=== PATIENT | female | born 1940 | race Caucasian/White ===

== ENCOUNTER → 2019-01-02 | Outpatient (CLI) | payer MEDICARE ==
[~2019-01-02] VITALS: Ht 69 cm; Wt 105.0 kg
[~2019-01-02] MED LIST: ASP325T PO; CARV6.252 PO; CATHETER FLUSH 10 ML SYR IV PRN; HCT25T PO; LOSA100T7 PO; REGADENOSON 0.4 MG/5 ML SYR (LEXISCAN) IV ONE; ROSU20TA14 PO
[2019-01-02 10:08] VITALS: BP 140/57
--- NOTE | 2019-01-02 14:50 | STRESS TEST ---
DATE OF SERVICE: 01/02/2019 LEXISCAN MYOVIEW STRESS TEST REFERRING PHYSICIAN: Kirstin Sampson MD. Baseline heart rate is 60, baseline blood pressure 187/82. Baseline EKG is sinus rhythm with right bundle branch block. SUMMARY: The patient was injected with 10.36 mCi of technetium-99 Myoview and the resting images were obtained. Then, the patient received 0.4 mg of Lexiscan followed by 29.5 mCi of technetium-99 Myoview. Throughout the test, there were no EKG changes. The resting and stress images were reviewed and compared in the short axis, horizontal long axis, and vertical long axis views. Review of the images showed good radiotracer uptake with no significant ischemia or infarction. SSS is 1, SDS 1, TID value 1.07. On the gated images, the left ventricle appeared to be normal size with normal contractility. Calculated ejection fraction is 58%. CONCLUSION: 1. The patient tolerated Lexiscan well. 2. Baseline right bundle branch block persisted throughout test. 3. No ischemia or infarction on SPECT images. 4. Normal left ventricular size with normal contractility. Calculated ejection fraction is 58%. Job ID: [id number] DocumentID: [id number] Dictated Date: 01/02/2019 12:32:02 Groundhand Date: 01/02/2019 14:50:04 Dictated By: TAMIKA AMEZCUA MD
== END ==
LOC: CARD 08:23
PROVIDERS: ATTEND Internal Medicine Cardiovascular Disease
DX: I08.1 Rheumatic disorders of both mitral and tricuspid valves (principal); I45.10 Unspecified right bundle-branch block; I11.9 Hypertensive heart disease without heart failure; I65.29 Occlusion and stenosis of unspecified carotid artery; I25.10 Atherosclerotic heart disease of native coronary artery without angina pectoris; E78.2 Mixed hyperlipidemia
CPT/HCPCS: 78452; 93017; 93306

== ENCOUNTER → 2020-03-13 | Outpatient (CLI) | payer OTHER, MEDICARE ==
[~2020-03-13] MED LIST changes: -CATHETER FLUSH 10 ML SYR IV PRN; -REGADENOSON 0.4 MG/5 ML SYR (LEXISCAN) IV ONE
== END ==
LOC: GIR 11:34
PROVIDERS: ATTEND Family Medicine
DX: Z20.828 Contact with and (suspected) exposure to other viral communicable diseases (principal)
CPT/HCPCS: 87635

== ENCOUNTER → 2021-12-24 | Outpatient (CLI) | payer MEDICARE | LOC: CARD 13:00 | PROVIDERS: ATTEND Physician Assistant | DX: I34.0 Nonrheumatic mitral (valve) insufficiency (principal); I10 Essential (primary) hypertension | CPT/HCPCS: 93306 ==

== ENCOUNTER → 2022-01-07 | Outpatient (CLI) | payer MEDICARE ==
[~2022-01-07] MED LIST changes: +CATHETER FLUSH 10 ML SYR IVP PRN; +REGADENOSON 0.4 MG/5 ML SYR (LEXISCAN) IV ONE
[2022-01-07 08:57] VITALS: BP 140/66
--- NOTE | 2022-01-07 10:55 | Cardiology Stress Test Report ---
Stress Test Report Date of Procedure/Referring: Date of Procedure: Jan 07, 2022 PCP Cecilia Dias MD Admitting Physician Admitting Physician: Attending Physician: Muriel Franco Indications: HTN Baseline Heart Rate: 66 Baseline Blood Pressure: Blood Pressure Systolic: 140 Blood Pressure Diastolic: 66 Baseline Vitals Vital Signs Date Time Temp Pulse Resp B/P (MAP) Pulse Ox O2 Delivery O2 Flow Rate FiO2 01/07/22 08:57 66 140/66 (90) Baseline EKG: Baseline EKG: NSR Summary After explaining the procedure to the patient, she signed a consent and then brought to the stress nuclear laboratory. Patient received 0.4 mg Lexiscan for stress test, ECG, heart rate and blood pressure were monitored continuously. Resting and stress dose of radio tracer were injected, imaging was acquired and reviewed in short axis, horizontal long axis and vertical long axis views. TID: 1.19 SSS: 12 SDS: 9 EF: 40 1. Patient tolerated Lexiscan well 2. Baseline right bundle branch block persisted during test 3. Reversible ischemia involving the inferior wall, inferior apex and inferolateral wall 4. Diffuse left ventricular hypokinesia more pronounced at the inferior wall, ejection fraction 40% Copy Copies To 1: CECILIA DIAS MD, BASHAR J MD Jan 07, 2022 10:55
== END ==
LOC: CARD 07:24
PROVIDERS: ATTEND Physician Assistant
DX: I25.10 Atherosclerotic heart disease of native coronary artery without angina pectoris (principal); I10 Essential (primary) hypertension
CPT/HCPCS: 78452; 93017; A9502

== ENCOUNTER 2022-01-14 09:00 | Day surgery (SDC) | payer MEDICARE ==
[~2022-01-14] VITALS: Ht 149.8 cm; Wt 66.7 kg
[2022-01-14 07:31] VITALS: BP 141/64
[2022-01-14 07:44] LABS: HEMATOCRIT 40 % (35-52); MEAN CORPUSCULAR HEMOGLOBIN 30 pg (25-34); MEAN CORPUSCULAR HGB CONC 33 g/dL (32-36); MEAN CORPUSCULAR VOLUME 91 fL (80-99); MEAN PLATELET VOLUME 9.8 fL (9.0-12.2); PLATELET COUNT 328 10^3/uL (130-400); WHITE BLOOD COUNT 8.2 10^3/uL (4.3-11.0)
[2022-01-14 08:03] LABS: ALBUMIN 4.1 GM/DL (3.2-4.5); BILIRUBIN,TOTAL 0.6 MG/DL (0.1-1.0); CREATININE SERUM 0.83 MG/DL (0.60-1.30); POTASSIUM 3.6 MMOL/L (3.6-5.0); TOTAL PROTEIN 7.2 GM/DL (6.4-8.2)
--- NOTE | 2022-01-14 08:05 | Diagnostic Imaging Report ---
History: Abnormal stress test, shortness of breath, coronary artery disease COMPARISON: None TECHNIQUE: Frontal view the chest FINDINGS: There is moderate cardiomegaly. Sternotomy wires are noted. There is aortic atherosclerosis. Lung volumes are normal and no consolidation is seen. There is no pleural effusion or pneumothorax. There are old left-sided rib fractures and bone density appears diffusely low. IMPRESSION: 1. Cardiomegaly with no acute pulmonary abnormality seen. Dictated by: Dictated on workstation # [id number]
--- NOTE | 2022-01-14 08:55 | Cardiac Procedure Note-CS/ASA ---
Pre-Procedure Note Pre-Op Procedure Note Date of Available H&P: Jan 08, 2022 Date H&P Reviewed: Jan 14, 2022 Time H&P Reviewed: 08:55 History & Physical: H&P Reviewed, Patient Examed, No changes noted Pre-Operative Diagnosis: CAD Conscious Sedation Pre-Proced Time 08:55 ASA Score 3 For ASA 3 and 4: Consider anesthesia and medical clearance. Also, for patients with a history of failed moderate sedation consider anesthesia. Airway Lungs Heart ASA score ASA 1: a normal healthy patient ASA 2: a patient with a mild systemic disease (mid diabetes, controlled hypertension, obesity ASA 3: a patient with a severe systemic disease that limits activity (angina, COPD, prior Myocardial infarction) ASA 4: a patient with an incapacitating disease that is a constant threat to life (CHF, renal failure) ASA 5: a moribund patient not expected to survive 24 hrs. (ruptured aneurysm) ASA 6: a declared brain- patient whose organs are being harvested. For emergent operations, add the letter E after the classification Mallampati Classification Grade 3 Sedation Plan Analgesia, Amnesia, Plan communicated to team members, Discussed options with patient/fam, Discussed risks with patient/fam The patient is an appropriate candidate to undergo the planned procedure, sedation, and anesthesia. The patient immediately re-assessed prior to indication. TAMIKA AMEZCUA MD Jan 14, 2022 08:55
[~2022-01-14 09:00] MED LIST changes: +AMLO-250 PO; +ASPI-1238 PO; +ATOR80TA76 PO; -CATHETER FLUSH 10 ML SYR IVP PRN; +CHOL500049 PO; +CLOP75TA28 PO; +CYAN-23 PO; +HEParin (CATH LAB) 2,000 ML IV ONE; +LEVO75CA5 PO; +LIDOCAINE 1% INJ 30 ML (XYLOCAINE) VIAL ONE; +NITR100C PO; +NS IV 1000 ML 1,000 ML IV SCH; +NS IV 1000 ML 1,000 ML ONE; +OMEG100032 PO; -REGADENOSON 0.4 MG/5 ML SYR (LEXISCAN) IV ONE
[2022-01-14] MEDS ORDERED: MIDAZOLAM 2 MG/2 ML (VERSED) VIAL ONE (09:11)
[2022-01-14] MEDS ORDERED: fentaNYL INJ 100 MCG/2 ML AMP ONE (09:11)
[2022-01-14] MEDS ORDERED: HEParin 1000 UNIT/ML (10ML VIAL) FOR BOLUS ONE ×2 (10:10→10:58)
--- NOTE | 2022-01-14 10:21 | Cardiac Cath Report ---
Cardiac Cath Report Physician (s)/Environmental Communications Specialist (s) Physician TAMIKA AMEZCUA MD Pre-Procedure Diagnosis Pre-Procedure Diagnosis: CAD Post-Procedure Note Procedure Start Date: Jan 14, 2022 Name of Procedure: Left heart catheterization Vein graft angiogram CARLSON angiogram Findings/Procedure Note PROCEDURE NOTE: 81-year-old lady with history of coronary artery disease, CABG, had an abnormal stress test with inferior wall ischemia scheduled for cardiac catheterization possible PTCA. After explaining the procedure to the patient, all pros and cons were explained, all questions were answered. The patient signed the consent and then she was placed on the cardiac catheterization laboratory. Groin was prepped SL fashion local anesthesia was used. Sheath placed in the right femoral artery. Winsome right and left catheter were used to access the coronary system.Vein Graft evaluated. CARLSON evaluated. Winsome right was prolapsed to the left ventricular cavity, pressure was measured, no left ventriculogram was done, pullback LV to aorta was done. At the end of the procedure the sheath was left in place. Patient underwent attempt for intervention with Dr. Andrew Larson, multiple guides were used without success in engaging the right coronary artery fully. After failed multiple attempt procedure was aborted. I contacted Dr. Genao in [place] who reviewed the films and he is willing to accept the patient and attempt the intervention FINDINGS: Hemodynamics LV 150/13, end-diastolic pressure of 13 Aorta 143/52 mean of 91 ANATOMY: Left Main has severe proximal stenosis Left Anterior Descending has severe stenosis proximally. CARLSON to the LAD is patent with good flow distally Left Circumflex has severe stenosis. Occluded obtuse marginal branch, vein graft to the OM is patent with good flow distally Right Coronary Artery is large artery with multiple segment of severe stenosis and ectasia in the midportion. There are collaterals filling the distal right from the vein graft to the OM CARLSON to LAD is patent with good flow distally Vein Graft to the obtuse marginal branch is patent giving collaterals to the distal right coronary artery LV Gram was not done, pressure was measured CONCLUSION: 1. Severe proximal/ostial left main coronary artery stenosis with severe stenosis in the LAD and circumflex artery with patent CARLSON to LAD and vein graft to the obtuse marginal branch. 2. Severe multisegment stenosis in the right coronary artery involving the ostial and proximal area, severe stenosis in the midportion and subtotal occlusion distally with haziness and slow flow, collaterals filling the distal right coronary artery from the left system 3. Normal left ventricular end-diastolic pressure DISCUSSION AND RECOMMENDATION HOSPITAL COURSE: Patient was noted to have ischemia in the inferior wall. There is multisegment severe stenosis with ectasia in the right coronary artery. Failed attempt for percutaneous intervention on the right coronary artery by Dr. Larson. Arrangements were made to transfer the patient to [facility] for intervention. Final diagnosis Coronary artery disease Chest pain Hypertension Hyperlipidemia Anesthesia Type: Conscious Sedation Estimated blood loss (mL): 20 ml Contrast Amount: 72 ml Total Radiation Dose: 612 mGy Post-Procedure Diagnosis Post-operative diagnosis: Coronary artery disease Hypertension Hyperlipidemia Chest pain TAMIKA AMEZCUA MD Jan 14, 2022 10:21
[2022-01-14] MEDS ORDERED: CLOPIDOGREL 300 MG (PLAVIX) TABLET PO ONE (10:22)
--- NOTE | 2022-01-14 11:15 | Cardiac Cath Report ---
CARDIAC CATHETERIZATION DATE OF PROCEDURE: 01/14/2022 INDICATION: Coronary artery disease with angina pectoris and abnormal stress test. HISTORY: The patient is a 81 year old female with known coronary artery disease and previous coronary artery bypass surgery with a left internal mammary artery graft to the left anterior descending coronary artery and vein graft to the left circumflex coronary artery. She has been having symptoms concerning for angina. She underwent a nuclear stress test that showed multiple zones of ischemia. She then underwent a cardiac catheterization by TAMIKA Casillas MD just prior to this procedure. She was found to have severe disease of the ostium of the right coronary artery as well as lesions in the mid and distal segment. Therefore, we elected to proceed with percutaneous coronary intervention. Given the patient's current clinical status, she is considered mildly frail. She has no reported history of heart failure. PROCEDURES PERFORMED: 1. Attempted percutaneous coronary intervention of the right coronary artery. PROCEDURE DESCRIPTION: After informed consent and in the fasting state, left heart catheterization was performed through the right femoral artery utilizing a 6 [place] system by percutaneous approach. Multiple 6 [place] guide catheters were utilized to engage the right coronary artery including a JR4, Joaquin rig ht, AL-1, and SHANE catheters but none of these would sit coaxial in the right coronary artery. Therefore, the procedure was aborted. All catheters were exchanged over a guidewire. Following the procedure, a [employer] integrated circuits inspector closure device was deployed in the right femoral artery for hemostasis. RESULTS: ATTEMPTED PERCUTANEOUS CORONARY INTERVENTION: Percutaneous coronary intervention was attempted on the right coronary artery utilizing multiple different 6 [place]i guide catheters as outlined above. I was able to engage the right coronary artery with a 6 [place] SHANE guide catheter and a 6 [place] Joaquin right catheter but it would not seat well in the vessel and just injecting contrast because the catheter to dislodge. After multiple attempts using several different catheters, the procedure was aborted. The lesion was never crossed with a wire. IMPRESSION: 1. Status post unsuccessful attempt at percutaneous coronary intervention on the right coronary artery using multiple different kind catheters none of which would engage the right coronary artery adequate enough to perform an intervention. Certain portions of this document may have been dictated utilizing voice recognition technology. Inherent to this technology, typographical and grammatical errors may exist. As much as I am diligent to identify and correct these mistakes, some errors may remain in the document. DAYRON WICK JR, MD Jan 14, 2022 11:15
[2022-01-14] MEDS ORDERED: NS IV 1000 ML 1,000 ML IV SCH (11:45)
[2022-01-14] MEDS ORDERED: PATIENT MAY USE OWN MEDS, ALL PO SCH (11:45)
[2022-01-14] MEDS ORDERED: OMEGA 3 (FISH OIL) 1000 MG CAP PO SCH (21:00)
[2022-01-14] MEDS ORDERED: NITROFURANTOIN MACROCRYSTAL 100 MG PO SCH (21:00)
[2022-01-15] MEDS ORDERED: LEVOTHYROXINE 75 MCG (LEVOTHROID) TABLET PO SCH (06:30)
[2022-01-15] MEDS ORDERED: NON-FORMULARY MEDICATION 1 EA EA (Levothyroxine Sodium (Levothyroxine) 75 MCG) PO SCH (09:00)
[2022-01-15] MEDS ORDERED: CLOPIDOGREL 75 MG (PLAVIX) TABLET PO SCH (09:00)
[2022-01-15] MEDS ORDERED: amLODIPine 5 MG (NORVASC) TAB PO SCH (09:00)
[2022-01-15] MEDS ORDERED: LOSARTAN 50 MG (COZAAR) TAB PO SCH (09:00)
[2022-01-15] MEDS ORDERED: ASPIRIN E.C. 81 MG (ECOTRIN) TAB PO SCH ×2 (09:00)
== END 2022-01-14 14:25 | disposition short-term general hospital (02) ==
LOC: CATH 09:00 → CSD 11:33 → CATH 13:00
PROVIDERS: ATTEND Internal Medicine Cardiovascular Disease
DX: I25.10 Atherosclerotic heart disease of native coronary artery without angina pectoris (principal); I10 Essential (primary) hypertension; E78.5 Hyperlipidemia, unspecified; Z79.82 Long term (current) use of aspirin; Z79.899 Other long term (current) drug therapy; E66.01 Morbid (severe) obesity due to excess calories; I65.23 Occlusion and stenosis of bilateral carotid arteries; E78.2 Mixed hyperlipidemia
CPT/HCPCS: 71045; 80053; 80061; 85027; 85347; 85610; 85730; 87081; 92920; 93005; 93458; C1725; C1760; C1769 ×2; C1887 ×4; C1894; 36415

== ENCOUNTER → 2022-07-15 | Outpatient (CLI) | payer MEDICARE, OTHER ==
[~2022-07-15] VITALS: Ht 149 cm; Wt 65.0 kg
[~2022-07-15] MED LIST changes: +CATHETER FLUSH 10 ML SYR IVP PRN; -HEParin (CATH LAB) 2,000 ML IV ONE; -LIDOCAINE 1% INJ 30 ML (XYLOCAINE) VIAL ONE; -NS IV 1000 ML 1,000 ML IV SCH; -NS IV 1000 ML 1,000 ML ONE; +REGADENOSON 0.4 MG/5 ML SYR (LEXISCAN) IV ONE
[2022-07-15 13:14] VITALS: BP 185/73
--- NOTE | 2022-07-15 15:42 | Cardiology Stress Test Report ---
Stress Test Report Date of Procedure/Referring: Date of Procedure: July 15, 2022 PCP Kirstin Dias MD Admitting Physician Admitting Physician: Attending Physician: Semaj Casillas MD Indications: CP Baseline Heart Rate: 69 Baseline Blood Pressure: Blood Pressure Systolic: 185 Blood Pressure Diastolic: 73 Baseline Vitals Vital Signs Date Time Temp Pulse Resp B/P (MAP) Pulse Ox O2 Delivery O2 Flow Rate FiO2 07/15/22 13:14 69 185/73 (110) 97 Room Air Baseline EKG: Baseline EKG: RBBB Summary After explaining the procedure to the patient, she signed a consent and then brought to the stress nuclear laboratory. Patient received 0.4 mg Lexiscan for stress test, ECG, heart rate and blood pressure were monitored continuously. Resting and stress dose of radio tracer were injected, imaging was acquired and reviewed in short axis, horizontal long axis and vertical long axis views. TID: 1 SSS: 9 SDS: 9 EF: 70 Patient tolerated Lexiscan well Reversible ischemia involving the mid to apical inferior wall and inferolateral wall Normal left ventricular size, ejection fraction 70% Copy Copies To 1: KIRSTIN DIAS MD, BASHAR J MD July 15, 2022 15:42
== END ==
LOC: CARD 11:14
PROVIDERS: ATTEND Internal Medicine Cardiovascular Disease
DX: I10 Essential (primary) hypertension (principal); I25.10 Atherosclerotic heart disease of native coronary artery without angina pectoris; R07.2 Precordial pain
CPT/HCPCS: 78452; 93017; A9502

== ENCOUNTER 2022-07-29 08:02 | Day surgery (SDC) | payer MEDICARE ==
[~2022-07-29] VITALS: Ht 149 cm; Wt 65.8 kg
[2022-07-29] VITALS (9 sets, daily range): BP systolic 110–184; BP diastolic 52–90
[~2022-07-29 08:02] MED LIST changes: -CATHETER FLUSH 10 ML SYR IVP PRN; -REGADENOSON 0.4 MG/5 ML SYR (LEXISCAN) IV ONE
[2022-07-29] MEDS ORDERED: NS IV 1000 ML 1,000 ML IV ONE (08:15)
--- NOTE | 2022-07-29 08:44 | Diagnostic Imaging Report ---
INDICATION: Chest pain. Portable chest 8:28 AM There are postoperative changes from CABG surgery. Heart size and pulmonary vascularity are normal. Lungs are clear. There are no effusions or pneumothoraces. IMPRESSION: No acute abnormalities in the chest. Dictated by: Dictated on workstation # [id number]
[2022-07-29 09:01] LABS: HEMATOCRIT 40 % (35-52); HEMOGLOBIN 13.1 g/dL (11.5-16.0); MEAN CORPUSCULAR HEMOGLOBIN 30 pg (25-34); MEAN CORPUSCULAR HGB CONC 33 g/dL (32-36); MEAN CORPUSCULAR VOLUME 90 fL (80-99); MEAN PLATELET VOLUME 9.7 fL (9.0-12.2); PLATELET COUNT 342 10^3/uL (130-400); WHITE BLOOD COUNT 9.6 10^3/uL (4.3-11.0)
[2022-07-29 09:03] LABS: BILIRUBIN,URINE NEGATIVE (NEGATIVE); CLARITY,URINE SL CLOUDY; COLOR,URINE YELLOW; GLUCOSE, URINE (UA) NEGATIVE (NEGATIVE); KETONES,URINE NEGATIVE (NEGATIVE); LEUKOCYTE ESTERASE ,URINE 1+ (NEGATIVE); NITRITE,URINE NEGATIVE (NEGATIVE); PROTEIN,URINE NEGATIVE (NEGATIVE)
[2022-07-29] MEDS ORDERED: MTP25TSR PO (09:09)
[2022-07-29] MEDS ORDERED: PRED5DRO24 OS (09:09)
[2022-07-29] MEDS ORDERED: NS IV 1000 ML 1,000 ML ONE (09:09)
[2022-07-29] MEDS ORDERED: HEParin (CATH LAB) 2,000 ML IV ONE (09:09)
[2022-07-29] MEDS ORDERED: LOSA100T57 PO (09:09)
[2022-07-29] MEDS ORDERED: TURM500T PO (09:09)
[2022-07-29] MEDS ORDERED: LIDOCAINE 1% INJ 20 ML VIAL ONE (09:09)
[2022-07-29] MEDS ORDERED: FLAX10004 PO (09:09)
[2022-07-29] MEDS ORDERED: ASCO250T16 PO (09:09)
[2022-07-29] MEDS ORDERED: CYAN-41 PO (09:09)
[2022-07-29] MEDS ORDERED: HYDR25TA4 PO (09:09)
[2022-07-29] MEDS ORDERED: fentaNYL INJ 100 MCG/2 ML AMP ONE (09:10)
[2022-07-29] MEDS ORDERED: MIDAZOLAM 5 MG/5 ML (VERSED) VIAL ONE (09:10)
[2022-07-29 09:15] LABS: BACTERIA,URINE FEW /HPF; INR 0.9 (0.8-1.4); PROTHROMBIN TIME PATIENT 12.7 SEC (12.2-14.7)
--- NOTE | 2022-07-29 09:15 | Cardiac Procedure Note-CS/ASA ---
Pre-Procedure Note Pre-Op Procedure Note Date of Available H&P: July 16, 2022 Date H&P Reviewed: July 29, 2022 Time H&P Reviewed: 09:15 History & Physical: H&P Reviewed, Patient Examed, No changes noted Pre-Operative Diagnosis: CAD Moderate Sedation PreProcedure Time 09:15 ASA Score 3 Airway Lungs Heart ASA score ASA 1: a normal healthy patient ASA 2: a patient with a mild systemic disease (mid diabetes, controlled hypertension, obesity ASA 3: a patient with a severe systemic disease that limits activity (angina, COPD, prior Myocardial infarction) ASA 4: a patient with an incapacitating disease that is a constant threat to life (CHF, renal failure) ASA 5: a moribund patient not expected to survive 24 hrs. (ruptured aneurysm) ASA 6: a declared brain- patient whose organs are being harvested. For emergent operations, add the letter E after the classification Mallampati Classification Grade 3 Sedation Plan Analgesia, Amnesia, Plan communicated to team members, Discussed options with patient/fam, Discussed risks with patient/fam The patient is an appropriate candidate to undergo the planned procedure, sedation, and anesthesia. The patient immediately re-assessed prior to indication. TAMIKA AMEZCUA MD July 29, 2022 09:15
[2022-07-29 09:22] LABS: ALBUMIN 4.4 GM/DL (3.2-4.5); BILIRUBIN,TOTAL 0.6 MG/DL (0.1-1.0); CALCIUM 10.4 MG/DL (8.5-10.1); CREATININE SERUM 0.86 MG/DL (0.60-1.30); POTASSIUM 3.6 MMOL/L (3.6-5.0); TOTAL PROTEIN 7.4 GM/DL (6.4-8.2)
[2022-07-29] MEDS ORDERED: HEParin 1000 UNIT/ML (10ML VIAL) FOR BOLUS ONE (09:50)
[2022-07-29] MEDS ORDERED: NITRO DRIP 25000 MCG/D5W 0 ML IV ONE (09:50)
[2022-07-29] MEDS ORDERED: ASPIRIN 325 MG (5 GR) TABLET ONE (10:09)
[2022-07-29] MEDS ORDERED: CLOPIDOGREL 300 MG (PLAVIX) TABLET PO ONE (10:09)
[2022-07-29] MEDS ORDERED: PATIENT MAY USE OWN MEDS, ALL PO SCH (10:30)
[2022-07-29] MEDS ORDERED: NS IV 1000 ML 1,000 ML IV SCH (10:30)
--- NOTE | 2022-07-29 10:38 | Cardiac Cath Report ---
Cardiac Cath Report Physician (s)/Filter Helper (s) Physician TAMIKA AMEZCUA MD Pre-Procedure Diagnosis Pre-Procedure Diagnosis: CAD Post-Procedure Note Procedure Start Date: July 29, 2022 Name of Procedure: Left heart catheterization Vein graft angiogram CARLSON angiogram Stenting to the right coronary artery Findings/Procedure Note PROCEDURE NOTE: 82 years old lady with history of coronary artery disease, CABG, recent complex intervention with stenting to the proximal and distal right coronary artery. Had an abnormal stress test with inferior wall ischemia scheduled for cardiac c atheterization possible PTCA. After explaining the procedure to the patient, all pros and cons were explained, all questions were answered. The patient signed the consent and then she was placed in the cardiac catheterization laboratory. Groin was prepped in SL fashion local anesthesia was used. Sheath placed in the right femoral artery. Winsome' right and left catheter were used to access the coronary system. Winsome right was prolapsed to the left ventricular cavity, pressure was measured, pullback LV to aorta was done. Patient has severe mid right coronary artery stenosis. Received total of 5000 units of heparin Winsome right guide was used BMW wire was advanced and parked distally, noncompliant 3 x 20 balloon was used for the 95% stenosis in the mid right coronary artery. Multiple inflations were done Skypoint stent 3 x 23 mm was deployed, postdilated to 3.2 mm overlapping with an old proximal and distal right coronary stents. 0% residual stenosis with excellent results, excellent flow. At the end of the procedure the sheath was removed. Closure device was deployed FINDINGS: Hemodynamics LV 143/19, end-diastolic pressure of 19 Aorta 135/50 mean of 84 ANATOMY: Left Main has severe 80% ostial stenosis, did not change compared to the study of January 2022, corrected with the bypass surgery Left Anterior Descending has moderate diffuse disease less than 30%, patent CARLSON to the LAD Left Circumflex has mild disease less than 20% stenosis, patent vein graft to the circumflex artery Right Coronary Artery is large dominant artery with patent stent in the proximal right coronary artery and patent stent in the distal right coronary artery the mid segment has 95% stenosis, calcified artery successful deployment of Skypoint Emma 3 x 23 mm expanded to 3.2 mm with 0% residual stenosis LV Gram was not done, pressure was measured CARLSON angiogram was done with nonselective injection, the CARLSON to the mid LAD is patent with excellent flow in the LAD system Vein graft to the obtuse marginal artery is patent with excellent flow in the circumflex system PERCUTANEOUS INTERVENTION: Pre stenosis 95% Post Stenosis 0% Pre LONNIE flow 2 Post LONNIE flow 3 Dominance right coronary artery CONCLUSION: Severe mid right coronary artery stenosis with successful deployment of Skypoint Emma 3 x 23 mm at this point patient will is having overlapping stent extending from the proximal to the distal portion of the right coronary artery. Excellent results Severe [place] left coronary system disease with 80% ostial left main corrected with patent CARLSON to LAD and patent vein graft to the obtuse marginal branch Normal left ventricular end-diastolic pressure DISCUSSION AND RECOMMENDATION: Patient has been on aspirin and Plavix. We will restart her home medication, monitor Continue to maximize medical therapy. Anesthesia Type: Conscious Sedation Estimated blood loss (mL): 20 ml Contrast Amount: 57 ml Total Radiation Dose: 670 mGy Post-Procedure Diagnosis Post-operative diagnosis: Chest pain Coronary artery disease Hypertension Hyperlipidemia TAMIKA AMEZCUA MD July 29, 2022 10:38
--- NOTE | 2022-07-29 10:41 | Discharge Inst-Post CATH ---
Discharge Inst-CATH/EP Problems Reviewed?: Yes Post Cardiac Cath/EP D/C Inst Follow Up/Plan Appointment with Dr. Casillas's office in 2 to 4 weeks <b>CARDIAC CATH/EP PROCEDURE DISCHARGE INSTRUCTIONS</b> ACTIVITY * Go Home directly and rest. * Limit activity of the leg (or wrist if it was used) for 7 days including aer obics, swimming, jogging, bicycling, etc. * Restrict stair-climbing for 7 days if possible, if not, climb up with your non-cath leg, then bring together on the same step. * Avoid lifting, pushing, pulling or excessive movement of the affected extremi ty for 7 days. * Customary sexual activity may be resumed after 2 days-use caution not to use a position that strains or causes pain to the affected extremity. * No driving for 24 hours. * NO SMOKING. * Avoid straining for bowel movements for 7 days. * Gentle walking on level ground is allowed. * Returning to work will depend on the type of procedure and the results. Your doctor will discuss this with you. CALL YOUR DOCTOR FOR ANY OF THE FOLLOWING: *If bleeding from the puncture site occurs- Apply gentle pressure to site with clean cloth and call your doctor or EMS. * If a knot or lump forms under the skin, increases in size, or causes pain. * If bruising appears to be worsening or moving further down your leg instead of disappearing. * Temperature above 101 F. CARE OF YOUR GROIN INCISION; * Bruising or purple discoloration of the skin near the puncture site is common. * You may shower only, no bathtub bathing for 5 days. Be careful to avoid slipping as your leg may feel stiff. * If a closure device was used on your femoral artery, please see the attached guide regarding care of the device and your leg. * Leave dressing on FOR 24 hours. CARE OF YOUR WRIST INCISION; * Bruising or purple discoloration of the skin near the puncture site is common. * You may shower. * DO NOT submerge wrist. * Leave dressing on FOR 24 hours. TAMIKA CASILLAS MD July 29, 2022 10:41
[2022-07-29] MEDS ORDERED: CLOPIDOGREL 75 MG (PLAVIX) TABLET PO SCH (12:00)
[2022-07-29] MEDS ORDERED: ASCORBIC ACID (VIT C) 500 MG TABLET PO SCH (12:00)
[2022-07-29] MEDS ORDERED: amLODIPine 5 MG (NORVASC) TAB PO SCH (21:00)
[2022-07-30] MEDS ORDERED: LEVOTHYROXINE 75 MCG (LEVOTHROID) TABLET PO SCH (06:30)
[2022-07-30] MEDS ORDERED: ASPIRIN E.C. 81 MG (ECOTRIN) TAB PO SCH (09:00)
[2022-07-30] MEDS ORDERED: LOSARTAN 100 MG (COZAAR) TABLET PO SCH (09:00)
== END 2022-07-29 15:55 | disposition home or self-care (01) ==
LOC: CATH 08:02 → CSD 10:45 → CATH 15:55
PROVIDERS: ATTEND Internal Medicine Cardiovascular Disease
DX: I25.10 Atherosclerotic heart disease of native coronary artery without angina pectoris (principal); I10 Essential (primary) hypertension; E78.2 Mixed hyperlipidemia; I65.23 Occlusion and stenosis of bilateral carotid arteries; I44.0 Atrioventricular block, first degree; I45.10 Unspecified right bundle-branch block; Z79.899 Other long term (current) drug therapy; Z79.82 Long term (current) use of aspirin; Z79.01 Long term (current) use of anticoagulants; Z86.73 Personal history of transient ischemic attack (TIA), and cerebral infarction without residual deficits
CPT/HCPCS: 71045; 80053; 80061; 81000; 85027; 85347; 85610; 85730; 87081; 87088; 93005; 93459; C1725; C1760; C1769; C1874; C1887; C1894; C9600; 36415